=== PATIENT | female | born 1975 | race Caucasian/White ===

== ENCOUNTER → 2020-01-26 15:17 | Outpatient (CLI) | payer BC, SELFPAY ==
--- NOTE | ~2020-01-26 | MM_ITS ---
EXAMINATION: MM screening [facility] BI w leda HISTORY: Screening mammogram TECHNIQUE: Craniocaudal and mediolateral oblique 3-D tomosynthesis images were obtained and synthetic 2-D images were generated. CAD analysis was submitted and interpreted. COMPARISON: No prior mammogram is available for comparison at this institution. BREAST PARENCHYMAL COMPOSITION: There are scattered areas of fibroglandular density. FINDINGS: Possible 3 mm spiculated mass at lower outer quadrant of right breast (craniocaudal leda im age 14/93). Otherwise there is no evidence of suspicious mass, calcification, or architectural distortion to sugg est malignancy in either breast. There has been no suspicious interval change. IMPRESSION: 1. Possible 3 mm spiculated mass at lower outer quadrant of right breast. 2. Diagnostic right mammogram is recommended, with ultrasound if required BI-RADS Category 0: Incomplete: Needs additional imaging evaluation. Reviewed, dictated and finalized at location A.
== END ==
PROVIDERS: Visit Provider Obstetrics & Gynecology
DX: Z12.31 Encounter for screening mammogram for malignant neoplasm of breast (principal)
CPT/HCPCS: 77063; 77067

== ENCOUNTER → 2020-02-01 08:30 | Outpatient (CLI) | payer BC, SELFPAY ==
--- NOTE | ~2020-02-01 | MMUS_ITS ---
EXAMINATION: MM diagnostic mammo unilat RT, US breast RT limited HISTORY: Follow-up right breast asymmetry TECHNIQUE: Additional 3-D tomosynthesis images of the right breast were performed and synthetic 2-D i mages were generated. CAD analysis was submitted and interpreted. High resolution right breast ultras ound was performed. COMPARISON: 01/26/2020 BREAST PARENCHYMAL COMPOSITION: Breast composed of scattered areas of fibroglandular density FINDINGS: MAMMOGRAPHIC FINDINGS: There are no suspicious masses, calcifications or architectural distortion to suggest malignancy. ULTRASOUND: Limited right breast ultrasound: Normal heterogeneous echotexture without focal mass. IMPRESSION: 1. No mammographic or sonographic evidence for malignancy in the right breast. 2. Routine yearly screening mammogram and regular clinical breast examination are recommended. BI-RADS Category 1: Negative Reviewed, dictated and finalized at location A. IMPRESSION: 1. No mammographic or sonographic evidence for malignancy in the right breast. 2. Routine yearly screening mammogram and regular clinical breast examination a re recommended. BI-RADS Category 1: Negative
== END ==
PROVIDERS: Visit Provider Obstetrics & Gynecology
DX: R92.8 Other abnormal and inconclusive findings on diagnostic imaging of breast (principal)
CPT/HCPCS: 76642; 77065

== ENCOUNTER 2020-02-13 17:15 | Emergency (ER) | payer BC, SELFPAY ==
--- NOTE | 2020-02-13 17:26 | ED.GENADULT ---
HPI - General Adult General Chief complaint: Ear Stated complaint: fluid in ear Time Seen by Provider: 02/13/20 17:26 Source: patient Mode of arrival: ambulatory Limitations: no limitations History of Present Illness HPI narrative: 44-year-old female patient presents to the [facility] with complaints of right ear pain that started about 2 days ago. Patient states she has had a little bit of a runny and stuffy nose recently. Patient states she does take Ro daily because she does have a lot of allergy issues and does get sinus infections frequently. Patient states she noticed some fluid coming from the right ear today as well when to come and get it checked out. Patient denies any fevers, body aches or chills. Denies any chest pain, shortness of breath. Related Data Home Medications Medication Instructions Recorded Confirmed atomoxetine PO 02/13/20 desvenlafaxine succinate mg PO 02/13/20 levonorgestrel-ethinyl estrad tablet 02/13/20 [Lessina] lorazepam 02/13/20 propranolol 02/13/20 trazodone 02/13/20 Allergies Allergy/AdvReac Type Severity Reaction Status Date / Time No Known Allergies Allergy Unverified 06/24/12 13:19 Review of Systems Review of Systems: Narrative: CONSTITUTIONAL: Denies fever, chills, or sweats. EYES: Denies visual changes, redness, or discharge. ENT: Denies rhinorrhea, congestion, sore throat, positive right otalgia. CARDIOVASCULAR: Denies chest pain, palpitations, or edema. RESPIRATORY: Denies cough or dyspnea. GASTROINTESTINAL: Denies abdominal pain, nausea, vomiting, or diarrhea. GENITOURINARY: Denies dysuria or hematuria. SKIN: Denies rash or itching. MUSCULOSKELETAL: Denies back pain, joint pain, or myalgia. NEUROLOGIC: Denies headache, numbness, or weakness. PSYCHIATRIC: Denies anxiety or depression. PMFSH Comments At the time of my signature I agree with nursing past medical history, surgical, social, and family history. There is no relevant family history pertinent to the presenting complaint. Exam Narrative: Exam Narrative: GENERAL: Well-appearing, well-nourished, and in no acute distress. HEAD: Normocephalic, atraumatic. EYES: PERRLA and EOMI. ENT: Nares clear, no rhinorrhea or epistaxis. Mucous membranes moist. The right TM does have fluid behind it with slight bulging. There is some green drainage noted to the right ear canal with some erythema and swelling noted. Posterior pharynx with no erythema, tonsil larger, exudates or lesions present. NECK: Supple. No lymphadenopathy CHEST: Clear to auscultation. No respiratory distress. HEART: Regular rate and rhythm. No murmur heard. Normal peripheral pulses. ABDOMEN: Soft, nontender, nondistended, normal active bowel sounds. EXTREMITIES: Normal range of motion. No edema. SKIN: Warm, dry, no rash. NEURO: No focal deficits. Alert and oriented x3. Course Vital Signs Vital signs: Vital Signs Temperature 37.1 C 02/13/20 17:30 Pulse Rate 88 02/13/20 17:30 Respiratory Rate 16 02/13/20 17:30 Blood Pressure 136/89 02/13/20 17:30 Pulse Oximetry 100 02/13/20 17:30 Temperature 37.1 C 02/13/20 17:30 Pulse Rate 88 02/13/20 17:30 Respiratory Rate 16 02/13/20 17:30 Blood Pressure 136/89 02/13/20 17:30 Pulse Oximetry 100 02/13/20 17:30 Vital signs reviewed. Medical Decision Making Differential Diagnosis Differential Diagnosis: Differential diagnosis: Otitis media, otitis externa, perforated TM, infection of the outer ear, foreign body or cerumen impaction, ruptured TM, acute mastoiditis, ligament otitis externa, dehydration, pneumonia, sepsis, dental or intraoral infection, TMJ dysfunction Discussed with patient that it does look like she has an inner ear infection as well as an outer ear infection. Discussed with patient that we will go ahead and discharge her home with oral antibiotics as well as some topical eardrops for her infection. Discussed with patient can she can take Tyleno
[2020-02-13 17:30] VITALS: BP 136/89; PULSE 88; RESP 16; TEMP 37.1; O2SAT 100
== END 2020-02-13 17:55 | disposition home or self-care (01) ==
PROVIDERS: Emergency Provider Nurse Practitioner Family
DX: H66.91 Otitis media, unspecified, right ear (principal); H60.501 Unspecified acute noninfective otitis externa, right ear; F41.9 Anxiety disorder, unspecified; F32.9 Major depressive disorder, single episode, unspecified
CPT/HCPCS: 99213; G0463

== ENCOUNTER 2020-04-15 16:58 | Emergency (ER) | payer BC, SELFPAY ==
[2020-04-15 17:06] VITALS: BP 152/98; PULSE 97; RESP 20; TEMP 36.6; O2SAT 100
--- NOTE | 2020-04-15 17:12 | ED.EAR ---
HPI - Ear Problem General Stated complaint: ear pain Time Seen by Provider: 04/15/20 17:12 Source: patient and RN notes reviewed History of Present Illness HPI Narrative: Patient is a 44-year-old female who presents the urgent care with complaints of right ear pain. Patient states is been ongoing since Wednesday and 2 nights ago she took Benadryl for the pain. Patient states she has not taken anything else [id number] for her symptoms. States that 2 months ago she had a right ear infection and was on eardrops and oral medication at that time. Denies of any fever, nausea, vomiting, any other upper respiratory symptoms. No other acute complaints. No acute distress noted. Patient aware of the plan of care. Some parts of this dictation were generated by voice recognition software and may contain typographical and/or grammatical inaccuracies. Related Data Home Medications Medication Instructions Recorded Confirmed atomoxetine PO 02/13/20 desvenlafaxine succinate mg PO 02/13/20 levonorgestrel-ethinyl estrad tablet 02/13/20 [Lessina] lorazepam 02/13/20 propranolol 02/13/20 trazodone 02/13/20 Allergies Allergy/AdvReac Type Severity Reaction Status Date / Time No Known Allergies Allergy Unverified 04/15/20 17:21 Review of Systems Review of Systems: Narrative: CONSTITUTIONAL: Denies fever, chills, or sweats. EYES: Denies visual changes, redness, or discharge. ENT: Reports of right otalgia CARDIOVASCULAR: Denies chest pain, palpitations, or edema. RESPIRATORY: Denies cough or dyspnea. GASTROINTESTINAL: Denies abdominal pain, nausea, vomiting, or diarrhea. GENITOURINARY: Denies dysuria or hematuria. SKIN: Denies rash or itching. MUSCULOSKELETAL: Denies back pain, joint pain, or myalgia. NEUROLOGIC: Denies headache, numbness, or weakness. All other systems reviewed are negative, except as documented in HPI. PMFSH Comments At the time of my signature, I reviewed and agree with the nursing past medical, surgical, social, and family history. There is no relevant family history pertinent to the patient complaint. Exam Narrative: Exam Narrative: GENERAL: This is a well-nourished, well-developed patient, in no apparent distress. HEAD: normocephalic, atraumatic. EYES: PERRL. Sclera clear/white. Vision is grossly intact. EARS: External ears normal, auditory canals clear and without drainage, mild fluid noted behind bilateral TMs without otitis, TMs normal without perforation. Hearing grossly intact. NOSE: External nose normal with no obvious nasal discharge, nares without redness, no rhinorrhea. THROAT: Mucous membranes moist, posterior pharynx clear. Mild postnasal drainage NECK: Neck supple SKIN: warm, intact with no suspicious lesions or rash, good texture and turgor. NEURO: awake, alert, and oriented to person, place and time. There were no obvious focal neurologic abnormalities. EXTREMITIES: No clubbing, cyanosis, or edema. Course Vital Signs Vital signs: Vital Signs Temperature 97.8 F 04/15/20 17:06 Pulse Rate 97 04/15/20 17:06 Respiratory Rate 20 04/15/20 17:06 Blood Pressure 152/98 H 04/15/20 17:06 Pulse Oximetry 100 04/15/20 17:06 Temperature 97.8 F 04/15/20 17:06 Pulse Rate 97 04/15/20 17:06 Respiratory Rate 20 04/15/20 17:06 Blood Pressure 152/98 H 04/15/20 17:06 Pulse Oximetry 100 04/15/20 17:06 Reviewed-patient is informed that they may have pre-hypertension or hypertension based on a blood pressure reading in the department. I recommend the patient call the primary care provider listed on their discharge instructions or a physician of their choice this week to arrange follow-up for further evaluation of possible pre-hypertension or hypertension. Medical Decision Making MDM Narrative Medical decision making narrative: Advised the patient to continue using her daily Ro as well as a dose of Benadryl prior to bedtime. Use Flonase nasal spray nightly. Use a hum
== END 2020-04-15 17:29 | disposition home or self-care (01) ==
PROVIDERS: Emergency Provider Nurse Practitioner Family
DX: H92.01 Otalgia, right ear (principal); F90.9 Attention-deficit hyperactivity disorder, unspecified type; F41.9 Anxiety disorder, unspecified; F32.9 Major depressive disorder, single episode, unspecified
CPT/HCPCS: 99213; G0463

== ENCOUNTER → 2021-06-13 15:42 | Outpatient (CLI) | payer BC, SELFPAY ==
--- NOTE | ~2021-06-13 | MM_ITS ---
EXAMINATION: MM screening [facility] BI w leda HISTORY: Screening TECHNIQUE: Craniocaudal and mediolateral oblique 3-D tomosynthesis images were obtained and synthetic 2-D images were generated. CAD analysis was submitted and interpreted. COMPARISON: Comparison to multiple prior studies sequentially, with oldest reviewed study dated 09/13. BREAST PARENCHYMAL COMPOSITION: The breasts are almost entirely fatty. FINDINGS: There is no evidence of suspicious mass, calcification, or architectural distortion to sugg est malignancy in either breast. There has been no suspicious interval change. IMPRESSION: 1. No mammographic evidence of malignancy. 2. Recommend routine screening mammography in one year. BI-RADS Category 1: Negative Reviewed, dictated and finalized at location A. AL CTO
== END ==
PROVIDERS: PCP Internal Medicine; Visit Provider Obstetrics & Gynecology
DX: Z12.31 Encounter for screening mammogram for malignant neoplasm of breast (principal)
CPT/HCPCS: 77063; 77067

== ENCOUNTER → 2022-02-12 08:02 | Outpatient (CLI) | payer BC, SELFPAY ==
--- NOTE | ~2022-02-12 | XR_ITS ---
EXAMINATION: XR chest 2V 02/12/2022 08:15 INDICATION: Cough PROCEDURE: 2 view chest COMPARISON: No prior studies for comparison. FINDINGS: The lungs are clear. The cardiomediastinal silhouette is within normal limits. There are no pleural effusions. There is no pneumothorax suspected. IMPRESSION: 1: NO ACUTE CARDIOPULMONARY DISEASE. Reviewed, dictated and finalized at location B.
== END ==
PROVIDERS: PCP Nurse Practitioner; Visit Provider Nurse Practitioner
DX: R05.9 Cough, unspecified (principal)
CPT/HCPCS: 71046

== ENCOUNTER → 2023-01-21 15:04 | Outpatient (CLI) | payer BC, SELFPAY ==
--- NOTE | ~2023-01-21 | MM_ITS ---
EXAMINATION: MM screening [facility] BI w leda HISTORY: Screening mammogram TECHNIQUE: Craniocaudal and mediolateral oblique 3-D tomosynthesis images were obtained and synthetic 2-D images were generated. CAD analysis was submitted and interpreted. COMPARISON: 06/13/2021, 02/01/2020, 01/25/2020 BREAST PARENCHYMAL COMPOSITION: The breasts are almost entirely fatty. FINDINGS: RIGHT BREAST: An asymmetry is present in the anterior/middle third of the upper breast 5.2 cm from th e nipple on the mediolateral oblique view. LEFT BREAST: No suspicious mass, calcification, or architectural distortion are identified to suggest malignancy. There has been no suspicious interval change. IMPRESSION: 1. Right breast asymmetry. 2. Additional mammographic views and possible breast ultrasound are recommended. BI-RADS Category 0: Incomplete: Needs additional imaging evaluation. Reviewed, dictated and finalized at location A. IMPRESSION: 1. Right breast asymmetry. 2. Additional mammographic views and possible breast ultrasound are recommended . BI-RADS Category 0: Incomplete: Needs additional imaging evaluation.
== END ==
PROVIDERS: PCP Internal Medicine; Visit Provider Obstetrics & Gynecology
DX: Z12.31 Encounter for screening mammogram for malignant neoplasm of breast (principal); R92.8 Other abnormal and inconclusive findings on diagnostic imaging of breast
CPT/HCPCS: 77063; 77067

== ENCOUNTER 2023-02-15 08:45 | Outpatient (CLI) | payer BC, SELFPAY ==
--- NOTE | ~2023-02-15 | MM_ITS ---
EXAMINATION: MM diagnostic ty RT w leda HISTORY: Right breast asymmetry reported in the anterior/middle third of upper breast 5.2 cm from nip ple on screening MLO view of 01/21/2023 TECHNIQUE: Additional 3-D tomosynthesis images of the right breast were performed and synthetic 2-D i mages were generated. CAD analysis was submitted and interpreted. COMPARISON: 01/21/2023, 06/13/2023ilateral screening mammogram examinations FINDINGS: No suspicious mass, architectural distortion, malignant calcification, skin thickening or r etraction is detected. IMPRESSION: 1. No mammographic evidence of malignancy 2. Routine mammographic screening is recommended BI-RADS Category 1: Negative Reviewed, dictated and finalized at location A.
== END 2023-02-15 08:46 ==
PROVIDERS: PCP Obstetrics & Gynecology; Visit Provider Obstetrics & Gynecology
DX: R92.8 Other abnormal and inconclusive findings on diagnostic imaging of breast (principal)
CPT/HCPCS: 77061; 77065; G0279

== ENCOUNTER 2023-02-22 12:23 | Observation (INO) | payer BC, SELFPAY ==
[2023-02-22] VITALS (22 sets, daily range): BP systolic 138–158; BP diastolic 92–112; PULSE 94–120; RESP 12–29; TEMP 36.1–36.4; O2SAT 96–100; BMI 29.6
--- NOTE | ~2023-02-22 | XR_ITS ---
XR chest 2V DATE: 02/22/2023 13:18 INDICATION: Chest pain TECHNIQUE: PA and lateral views COMPARISON: 02/12/2022 2 view chest FINDINGS: Normal heart size. No hilar or mediastinal enlargement. No pulmonary infiltrate or consolid ation, pleural effusion or pulmonary vascular congestion or pneumothorax. Included skeletal structure s are unremarkable. IMPRESSION: Negative Reviewed, dictated and finalized at location B. IMPRESSION: Negative
--- NOTE | 2023-02-22 12:28 | ECG_ITS ---
Measurements Intervals [place] Rate: 105 P: 46 LA: 136 QRS: -5 QRSD: 88 T: 80 QT: 344 QTc: 455 Interpretive Statements SINUS TACHYCARDIA POOR R-WAVE PROGRESSION NONSPECIFIC T-WAVE ABNORMALITY ABNORMAL ECG NO PREVIOUS ECG AVAILABLE FOR COMPARISON Electronically Signed On 02-23-2023 11:49:21 CDT by Robbie Agrawal M.D.
[2023-02-22 12:55] LABS: Basophils Absolute Auto 0.1 K/mm3 (0.0-0.1); Basophils Percent Auto 0.9 % (0.2-1.2); Eosinophils Absolute Auto 0.1 K/mm3 (0-0.3); Eosinophils Percent Auto 1.3 % (0-4.4); Hematocrit 47.3 % (37.0-47.0); Hemoglobin 16.2 g/dL (12.0-15.0); Immature Granulocyte Absolute 0.03 K/mm3 (0.00-0.031); Immature Granulocyte Percent A 0.4 % (0-0.5); Lymphocytes Absolute Auto 1.84 K/mm3 (0.9-3.2); Lymphocytes Percent Auto 23.4 % (18.3-44.2); Mean Corpuscular HGB Conc 34.2 g/dl (32-36); Mean Corpuscular Hemoglobin 31.6 pg (26-34); Mean Corpuscular Volume 92.4 fl (80-100); Mean Platelet Volume 9.9 fl (7.4-10.4); Monocytes Absolute Auto 0.5 K/mm3 (0.1-0.6); Monocytes Percent Auto 6.7 % (2.6-8.5); Neutrophils Absolute Auto 5.3 K/mm3 (1.3-6.7); Neutrophils Percent Auto 67.3 % (45.5-73.1); Platelet Count Result 370 k/mm3 (150-375); Red Blood Count 5.12 M/mm3 (4.2-5.4); Red Cell Distribution Width 12.6 % (11.5-14.5); White Blood Count 7.9 K/mm3 (4.5-10.0)
[2023-02-22 13:01] LABS: Alanine Aminotransferase 53 U/L (6-35); Albumin Level 4.5 g/dL (3.5-5.1); Alkaline Phosphatase 112 U/L (38-126); Anion Gap 7 mmol/L (8-16); Aspartate Amino Transferase 49 U/L (14-36); Bilirubin,Total 0.8 mg/dL (0.2-1.3); Blood Urea Nitrogen 10 mg/dL (7-17); Calcium 8.8 mg/dL (8.4-10.2); Carbon Dioxide 30 mmol/L (22-30); Chloride 95 mmol/L (98-107); Estimated CRCL calculation 78 ml/min; Estimated Glomerular Filt Rate > 60; Glucose 118 mg/dL (65-110); Lipase 39 U/L (23-300); Potassium 3.6 mmol/L (3.4-5.0); Prothrombin Time 13.4 Seconds (11.1-14.7); Sodium 132 mmol/L (137-145)
[2023-02-22 13:02] LABS: Partial Thromboplastin Time 24.4 SECONDS (22.3-36.8)
[2023-02-22 13:15] LABS: Troponin I 0.057 ng/mL (0.000-0.034)
--- NOTE | 2023-02-22 14:03 | ED.CHESTPAIN ---
HPI - Chest Pain General Chief Complaint: Chest Pain Stated Complaint: abnormal ekg in pmd Time Seen by Provider: 02/22/23 13:31 History of Present Illness HPI narrative: Patient is a 47-year-old female with a history of depression, anxiety, GERD presenting with chest discomfort. Patient states that yesterday she was just feeling off. States that she has had nasal congestion and a sinus headache so she attributed it to sinusitis. States that she checked her blood pressure and it was elevated and it remained elevated the entire day. This morning she woke up and continued to feel somewhat unwell and then had an episode of chest discomfort and shortness of breath. She saw her PCP who obtained an EKG and told her it was abnormal and to come to the ER. Currently, she denies chest pain or shortness of breath. States that she has had a decreased appetite lately but no vomiting or diarrhea. No leg swelling. No fevers or chills. Denies further complaints. No history of diabetes or tobacco use. Related Data Home Medications Medication Instructions Recorded Confirmed omeprazole 20 mg PO BID 04/15/20 02/26/23 atomoxetine 100 mg capsule 100 mg PO DAILY 02/04/21 02/26/23 biotin 10,000 mcg-keratin 100 mg tablet PO 02/04/21 02/26/23 tablet (Biotin Plus Keratin) desvenlafaxine succinate 100 mg 100 mg PO DAILY 02/04/21 02/26/23 tablet,extended release 24 hr lorazepam 0.5 mg tablet (Ativan) 0.5 mg PO BID PRN 02/04/21 02/26/23 magnesium 200 mg tablet 400 mg PO DAILY 02/04/21 02/26/23 multivitamin 1 tablet PO DAILY 02/04/21 02/26/23 phytoestrogen PO 02/04/21 02/26/23 fexofenadine 60 mg tablet (Ro 60 mg PO DAILY 02/11/22 02/26/23 Allergy) azelastine 137 mcg (0.1 %) nasal 137 mcg intranasal Q12H PRN 02/22/23 02/26/23 spray aerosol cetirizine 10 mg tablet (Zyrtec) 10 mg PO DAILY 02/22/23 02/26/23 estradiol 0.1 mg/24 hr semiweekly 1 patch transdermal 2XW 02/22/23 02/26/23 transdermal patch (Lyllana) progesterone micronized 100 mg 100 mg PO DAILY 02/22/23 02/26/23 capsule trazodone 100 mg tablet 150 mg PO HS PRN 02/22/23 02/26/23 coenzyme Q10 100 mg capsule 100 mg PO DAILY 02/26/23 02/26/23 (CoQ-10) Allergies Allergy/AdvReac Type Severity Reaction Status Date / Time erythromycin base Allergy Unknown Verified 02/24/23 12:25 mold Allergy Cough Verified 02/24/23 12:25 Review of Systems Review of Systems: All systems reviewed & are unremarkable except as noted in HPI and below PMFSH Past Medical History Medical History ADHD Allergies Anxiety Anxiety Depression with anxiety GERD (gastroesophageal reflux disease) Family History Family History Father Heart disease Mother Diabetes mellitus Depression Thyroid disease Congestive heart failure Sibling Asthma Depression Father Heart attack Mother COPD (chronic obstructive pulmonary disease) Congestive heart failure Foot ulcer due to secondary DM Diabetes mellitus Social History Social History Smoking status: Never smoker Alcohol intake: current Drinks per week: 4 Substance use: never Lack of Transportation: No Lack of Food: Never True Current Housing: I Have Housing Concerned About Future Housing: No Difficulty Paying Gas/Electric Bills: No Difficulty Paying for Meds: No Currently Unemployed: No Education: Master's Degree or Higher Difficulty w/ Childcare or Family Care: No Spiritual care concerns: No Exam Narrative: GENERAL: Well-appearing, well-nourished, and in no acute distress. Pleasant and cooperative HEAD: Normocephalic, atraumatic. EYES: PERRLA and EOMI. ENT: Nares clear, no rhinorrhea or epistaxis. NECK: Supple. CHEST: Clear to auscultation. No respiratory distress. HEART: Regular rate and rhythm. No murmur
[2023-02-22] MEDS: ASPIRIN 81 MG CHEWABLE TABLET 324 MG PO (14:07)
[2023-02-22] MEDS: SODIUM CHLORIDE 0.9% IV 1,000 ML 999 ML IV CONT (14:12)
[2023-02-22 14:56] LABS: Influenza A QL RT-PCR Negative (Negative); Influenza B QL RT-PCR Negative (Negative); RSV RNA, RT-PCR Negative (Negative); SARS-CoV-2 RNA PCR Negative (Negative)
[2023-02-22 16:09] LABS: Troponin I 0.056 ng/mL (0.000-0.034)
--- NOTE | 2023-02-22 16:22 | PM.IMHP ---
H&P: HPI History of Present Illness Date/Time: 02/22/23 21:30 Chief Complaint: chest pressure Narrative: This is a 47-year-old female patient with a history of ADHD and anxiety who is admitted to the hospital after she was found to have elevated troponins upon ER workup for chest pressure radiating into her back for 2 days. Patient reports that she had a few days of viral symptoms including headache runny/stuffy nose and then she began to feel shortness of breath with chest pressure radiating into her back. Patient also reports that her blood pressures have been high over the last few days and she has admitted to obsessively checking and getting higher and higher results. She does not currently take blood pressure medicine but believes she needs to be on some. Patient reported little bit of nausea no vomiting and she reported decreased appetite. She denies chance of and no longer takes control because she is told she is going into menopause. She does receive supplemental estradiol topically twice weekly. will order D-dimer and if positive will order CTA of the chest. Echocardiogram is ordered. Review of Systems Review of Systems: All systems reviewed & are unremarkable except as noted in HPI and below PMFSH Past Medical History Medical History ADHD Anxiety Family History Family History Father Heart attack Mother COPD (chronic obstructive pulmonary disease) CHF (congestive heart failure) Foot ulcer due to secondary DM Diabetes mellitus Social History Social History Smoking status: Never smoker Alcohol intake: current Drinks per week: 4 Substance use: never Lack of Transportation: No Lack of Food: Never True Current Housing: I Have Housing Concerned About Future Housing: No Difficulty Paying Gas/Electric Bills: No Difficulty Paying for Meds: No Currently Unemployed: No Education: Master's Degree or Higher Difficulty w/ Childcare or Family Care: No Spiritual care concerns: No Meds Home Medications and Allergies Home Medications Medication Instructions Recorded Confirmed Type atomoxetine 100 mg capsule 100 mg PO DAILY 02/22/23 02/22/23 History cetirizine 10 mg tablet (Zyrtec) 10 mg PO DAILY 02/22/23 02/22/23 History desvenlafaxine succinate 100 mg 100 mg PO DAILY 02/22/23 02/22/23 History tablet,extended release 24 hr estradiol 0.1 mg/24 hr semiweekly 0.1 mg topical 2XW 02/22/23 02/22/23 History transdermal patch (Lyllana) lorazepam 0.5 mg tablet 0.5 mg PO DAILY 02/22/23 02/22/23 History omeprazole 40 mg capsule,delayed 40 mg PO DAILY 02/22/23 02/22/23 History release progesterone micronized 100 mg 100 mg PO DAILY 02/22/23 02/22/23 History capsule propranolol 20 mg tablet 20 mg PO DAILY PRN Anxiety 02/22/23 02/22/23 History trazodone 100 mg tablet 100 mg PO HS 02/22/23 02/22/23 History Allergies Allergy/AdvReac Type Severity Reaction Status Date / Time erythromycin base Allergy Unknown Verified 02/22/23 18:11 mold Allergy Cough Verified 02/22/23 18:11 Vital Signs Vital Signs - 24 hr 02/22/23 12:32 02/22/23 12:47 02/22/23 13:01 Temperature 36.4 C Pulse Rate 105 H 96 104 H Respiratory Rate 29 H 13 12 Blood Pressure 148/102 H 152/112 H Pulse Oximetry 100 100 100 Oxygen Delivery Room Air 02/22/23 13:22 02/22/23 13:24 02/22/23 13:30 Temperature Pulse Rate 100 100 96 Respiratory Rate 14 19 19 Blood Pressure 141/111 H Pulse Oximetry 100 100 100 Oxygen Delivery 02/22/23 14:00 02/22/23 14:01 02/22/23 14:30 Temperature Pulse Rate 97 94 96 Respiratory Rate 24 H 16 19 Blood Pressure 156/108 H 158/102 H Pulse Oximetry 100 100 100 Oxygen Delivery 02/22/23 14:45 02/22/23 15:00 Temperature Pulse Rate 95 97 Respiratory Rate 17 2
--- NOTE | 2023-02-22 17:55 | ADMGEN ---
This patient, Pamella Garay, was admitted to 2 Medical Room 240-01. Patient/family oriented to hospital policies and general routines including ID bracelet, bed and alarms, visiting hours, pain management, procedures, bathroom and other care routines, personal items, smoking policy, room service/diet, and visiting hours. Information on how to activate the Rapid Response Team has been discussed. Patient/Family are encouraged to report perceived risks to care and to ask questions if they do not understand what they are told or what they should do.
[2023-02-22] MEDS: ENOXAPARIN 40 MG/0.4 ML SYRINGE SUB-Q (22:44)
[2023-02-22] MEDS: traZODone HCL 50 MG TABLET 100 MG PO (22:44)
[2023-02-22] MEDS: LORazepam (*CRX) 1 MG TABLET PO (22:50)
[2023-02-23] VITALS (7 sets, daily range): BP systolic 121–157; BP diastolic 81–96; PULSE 103–119; RESP 18–20; TEMP 36.3–36.4; O2SAT 99–100
--- NOTE | 2023-02-23 | EST_ITS ---
Patient Info Name: Pamella Garay Age: 47 years : 1975 Gender: Female Ht: 65 in Wt: 180 lbs BSA: 1.96 m2 HR: 118 bpm BP: 138 / 106 mmHg Heart Rhythm: Sinus Rhythm Exam Date: 02/23/2023 11:41 AM Exam Location: [facility] Patient Status: Inpatient Admit Date: 02/22/2023 Staff Ordering Physician: Robbie Agrawal MD Recycling Coordinator: Yakelin Meng RDCS Attending Provider: BREANNA DASILVA NP Referring Physician: Nghia CRANDALL; Exercise Technologist: Yakelin Meng RDCS Exercise Physician: breanna dasilva Exam Type: CA stress echo Study Info Indications R07.89 - Other chest pain Treadmill exercise stress echocardiogram is performed. Summary 1. Sinus tachycardia with leftward axis and poor R-wave progression. 2. No ischemic ST segment abnormalities noted with exercise. 3. PVCs noted with peak exercise. 4. Normal hyperdynamic response following treadmill exercise. 5. No ischemic wall motion abnormalities noted. 6. Clinically and electrocardiographically negative stress test to 97% age predicted maximum heart rate. Stress Echo Findings Left Ventricle Normal hyperdynamic response following treadmill exercise. Left Ventricle Normal left ventricular size and systolic function. Protocol: Jorge Stress ECG Details Stage: REST Duration (min): 1 min : 0 sec Speed (mph): 0.0 Grade (%): 0 HR (bpm): 120 SBP (mmHg): 138 DBP (mmHg): 106 METS: --- Stage: REST Duration (min): 10 min : 6 sec Speed (mph): 0.0 Grade (%): 0 HR (bpm): 129 SBP (mmHg): 138 DBP (mmHg): 106 METS: --- Stage: STAGE 1 Duration (min): 1 min : 0 sec Speed (mph): 1.7 Grade (%): 10 HR (bpm): 149 SBP (mmHg): 138 DBP (mmHg): 106 METS: --- Stage: STAGE 1 Duration (min): 2 min : 0 sec Speed (mph): 1.7 Grade (%): 10 HR (bpm): 155 SBP (mmHg): 138 DBP (mmHg): 106 METS: --- Stage: STAGE 1 Duration (min): 3 min : 0 sec Speed (mph): 1.7 Grade (%): 10 HR (bpm): 155 SBP (mmHg): 174 DBP (mmHg): 95 METS: --- Stage: STAGE 2 Duration (min): 1 min : 0 sec Speed (mph): 2.5 Grade (%): 12 HR (bpm): 165 SBP (mmHg): 174 DBP (mmHg): 95 METS: --- Stage: STAGE 2 Duration (min): 1 min : 13 sec Speed (mph): 0.0 Grade (%): 0 HR (bpm): 165 SBP (mmHg): 174 DBP (mmHg): 95 METS: --- Stage: RECOVERY Duration (min): 0 min : 46 sec Speed (mph): 0.0 Grade (%): 0 HR (bpm): 157 SBP (mmHg): 165 DBP (mmHg): 90 METS: --- Stage: RECOVERY Duration (min): 1 min : 47 sec Speed (mph): 0.0 Grade (%): 0 HR (bpm): 142 SBP (mmHg): 165 DBP (mmHg): 90 METS: --- Stage: RECOVERY Duration (min): 2 min : 46 sec Speed (mph): 0.0 Grade (%): 0 HR (bpm): 131 SBP (mmHg): 170 DBP (mmHg): 95 METS: --- Stage: RECOVERY Duration (min): 3 min : 47 sec Speed (mph): 0.0 Grade (%): 0 HR (bpm): 124 SBP (mmHg): 170 DBP (mmHg): 95 METS: --- Stage: RECOVERY Dur
[2023-02-23 00:05] LABS: D Dimer 0.34 ug/mL (<0.48)
--- NOTE | 2023-02-23 06:46 | PM.IMPN ---
Progress Note: A&P Assessment and Plan (1) Elevated troponin: Code(s): R77.8 - Other specified abnormalities of plasma proteins Status: Acute Assessment and Plan: elevated but downtrending troponin noted. Cardiology nurse practitioner was consulted and recommended echocardiogram in the morning. Given elevated troponin and history of hormone replacement, will check D-dimer and order CTA to assess for pulmonary embolism if D-dimer is positive. -D-dimer normal -Troponin initially elevated 0.057->0.056->0.050->0.032 -cards consult and recommendations are appreciated -Stress ECHO ordered (2) Viral syndrome: Code(s): B34.9 - Viral infection, unspecified Status: Acute Assessment and Plan: patient negative for COVID flu RSV however, troponin elevation could be mild myocarditis from other viral pathogen -viral vs bacterial sinusitis (3) Abnormal EKG: Code(s): R94.31 - Abnormal electrocardiogram [ECG] [EKG] Status: Acute Assessment and Plan: T-wave inversion in aVL and Q-wave greater than 40 milliseconds in V1/V2, cardiology CARE PROGRAM RESIDENT was consulted recommended trending tropes and echocardiogram in the morning (4) Anxiety: Code(s): F41.9 - Anxiety disorder, unspecified Status: Acute Assessment and Plan: Patient exhibiting significant signs anxiety which may be contributing to her elevated blood pressure. She reports checking her blood pressure repeatedly at home. She is on several medications for anxiety at baseline and appears to be excessively anxious that she may have had heart attack. -stable. home medications are on hold at this point just because we do not have them on formulary. If she stays tonight I will see if she can have someone bring them in from home. (5) ADHD: Code(s): F90.9 - Attention-deficit hyperactivity disorder, unspecified type Status: Acute Assessment and Plan: Patient is on stimulants which may be contributing to elevated blood pressure. (6) Elevated blood pressure reading: Code(s): R03.0 - Elevated blood-pressure reading, without diagnosis of hypertension Status: Acute Assessment and Plan: Blood pressure 152/94 on admission. Now 120s/80. Slightly tachycardic but I'm inclined to think this is anxiety related. Plan Admit to med tele Stress Echocardiogram in the a.m. Diet: Heart healthy VTE prophylaxis: Lovenox med rec: Completed Subjective Date/time seen: 02/23/23 06:46 Interval history: HPI obtained from chart, Chief Complaint: chest pressure Narrative: This is a 47-year-old female patient with a history of ADHD and anxiety who? is admitted to the hospital after she was found to have elevated troponins upon ER workup for chest pressure radiating into her back for 2 days.? Patient reports that she had a few days of viral symptoms including headache runny/stuffy nose and then she began to feel shortness of breath with chest pressure radiating into her back.? Patient also reports that her blood pressures have been high over the last few days and she has admitted to obsessively checking and getting higher and higher results.? She does not currently take blood pressure medicine but believes she needs to be on some.? Patient reported little bit of nausea no vomiting and she reported decreased appetite.? She denies chance of and no longer takes control because she is told she is going into menopause.? She does receive supplemental estradiol topically twice weekly.? will order D-dimer and if positive will order CTA of the chest.? Echocardiogram is ordered. Interval history: 02/23: Patient is doing well this morning she denies shortness of breath but has continued chest pressure which she says is in her epigastric area and back. She also complains of nasal congestion, unilateral tenderness to right maxillary and frontal sinus pressure and associated headache. She is keith
--- NOTE | 2023-02-23 06:53 | PC.NURSE ---
Documentation for night 02/22 by Eleazar Mi reviewed by this nurse.
[2023-02-23 07:11] LABS: Basophils Absolute Auto 0.1 K/mm3 (0.0-0.1); Basophils Percent Auto 0.7 % (0.2-1.2); Eosinophils Absolute Auto 0.2 K/mm3 (0-0.3); Eosinophils Percent Auto 2.3 % (0-4.4); Hematocrit 41.8 % (37.0-47.0); Hemoglobin 14.2 g/dL (12.0-15.0); Immature Granulocyte Absolute 0.03 K/mm3 (0.00-0.031); Immature Granulocyte Percent A 0.4 % (0-0.5); Lymphocytes Absolute Auto 2.83 K/mm3 (0.9-3.2); Lymphocytes Percent Auto 41.1 % (18.3-44.2); Mean Corpuscular Hemoglobin 31.2 pg (26-34); Mean Corpuscular Volume 91.9 fl (80-100); Mean Platelet Volume 9.7 fl (7.4-10.4); Monocytes Absolute Auto 0.7 K/mm3 (0.1-0.6); Monocytes Percent Auto 9.9 % (2.6-8.5); Neutrophils Absolute Auto 3.1 K/mm3 (1.3-6.7); Neutrophils Percent Auto 45.6 % (45.5-73.1); Platelet Count Result 292 k/mm3 (150-375); Red Blood Count 4.55 M/mm3 (4.2-5.4); Red Cell Distribution Width 12.6 % (11.5-14.5); White Blood Count 6.9 K/mm3 (4.5-10.0)
[2023-02-23 07:22] LABS: Alanine Aminotransferase 43 U/L (6-35); Albumin Level 3.6 g/dL (3.5-5.1); Alkaline Phosphatase 83 U/L (38-126); Anion Gap 7 mmol/L (8-16); Aspartate Amino Transferase 41 U/L (14-36); Bilirubin,Total 0.4 mg/dL (0.2-1.3); Blood Urea Nitrogen 14 mg/dL (7-17); Calcium 8.5 mg/dL (8.4-10.2); Carbon Dioxide 28 mmol/L (22-30); Chloride 100 mmol/L (98-107); Estimated CRCL calculation 78 ml/min; Estimated Glomerular Filt Rate > 60; Glucose 105 mg/dL (65-110); Potassium 3.8 mmol/L (3.4-5.0); Sodium 135 mmol/L (137-145)
[2023-02-23] MEDS: LORazepam (*CRX) 0.5 MG TABLET PO (08:49)
[2023-02-23] MEDS: LORATADINE 10 MG TABLET PO (08:49)
[2023-02-23] MEDS: PANTOPRAZOLE 40 MG TABLET PO (08:49)
--- NOTE | 2023-02-23 10:12 | ECG_ITS ---
Measurements Intervals [place] Rate: 114 P: 45 NM: 140 QRS: 25 QRSD: 89 T: 101 QT: 324 QTc: 447 Interpretive Statements SINUS TACHYCARDIA WITH OCCASIONAL VENTRICULAR PREMATURE COMPLEXES NONSPECIFIC T-WAVE ABNORMALITY ABNORMAL ECG COMPARED TO ECG 02/22/2023 12:34:17 NO SIGNIFICANT CHANGES Electronically Signed On 02-23-2023 15:17:05 CDT by Maurice Stubbs M.D.
--- NOTE | 2023-02-23 10:51 | PM.CNCAR ---
Assessment and Plan Assessment and plan (1) Elevated troponin: Code(s): R77.8 - Other specified abnormalities of plasma proteins Status: Acute Plan 47-year-old lady with symptoms of central chest discomfort preceded by headache that began on Wednesday. Symptoms are very atypical of myocardial ischemia. She has troponin levels are slightly out of normal range but are flat and not diagnostic of an acute coronary syndrome in my opinion. She does have poor R-wave progression on her ECG yesterday but no additional or worrisome findings for ischemia or injury. She provides a history of having some sort of right lower extremity vascular procedure done up in [facility] in the remote past. Obviously we do not have any access to those details at this hospital. I am going to schedule a stress echocardiogram to noninvasively screen for coronary disease. Hopefully that will be a negative exam Robbie Agrawal MD [facility] History of Present Illness History of Present Illness Consult date/time: 02/23/23 10:51 Reason For Visit: Elevated Troponin Narrative: This is a 47-year-old lady I am seeing at the request of the hospitalist because of chest discomfort and elevation of her troponin level. She is not known to have any cardiac problems prior to this and states that she had been feeling unwell for a couple of days starting Wednesday of this past weekend. She describes feeling of the sense of some headache initially behind the right eye she thought this was a sinus headache. She then started to have some off and on pressure in the substernal region the center of her chest. This symptom would persist for the rest of the day on Wednesday and persist into yesterday. Because of this she called her PCP and was brought into the office for an evaluation. An electrocardiogram was done and apparently because of some concerns on the ECG she was sent to the emergency room for evaluation. In the emergency room she was still having some very mild symptoms like this she she was found to have an elevated troponin at 0.05 and was admitted to the hospital for observation. She has had 3 troponin levels which are all identical. Her electrocardiogram shows sinus rhythm with poor R-wave progression but no significant ischemia or injury pattern. She states she is otherwise active woman she does ride her bicycle for exercise she does not have any symptoms that are concerning for exertional angina. She says she is not known to have hypertension diabetes or dyslipidemia. She interestingly states that about 10 years ago she had a percutaneous vascular procedure done in the right lower extremity because of a dusky great toe which [facility] [place] [facility]. It is her impression that this was done by a cardiothoracic surgeon. She works as a speech pathologist she otherwise has no other coronary risk factors she does not smoke and coronary disease is not prevalent in the family in a premature fashion Review of Systems Constitutional: Constitutional: Reports no additional constitutional complaints Eyes: Eyes: Reports no additional eye complaints ENT: Reports system reviewed and no additional complaints, except as documented Cardiovascular: Cardiovascular: Reports as per HPI Respiratory: Respiratory: Reports no additional respiratory complaints Gastrointestinal: Gastrointestinal: Reports no additional gastrointestinal complaints Musculoskeletal: Musculoskeletal: Reports back pain Integumentary/Breasts: Skin/Breast: Reports system reviewed and no additional complaints, except as docu Neurologic: Reports system reviewed and no additional complaints, except as documented Endocrine: Endocrine: Reports no additional endocrine complaints Hematologic/Lymphatic: Hematologic/Lymphatic: Reports no additional hematologic/lymphatic complaints Allergic/Immunologic: Allergic/Immunologic: Reports no additional allergic/immunologic complaints
[2023-02-23 11:04] LABS: Troponin I 0.032 ng/mL (0.000-0.034)
--- NOTE | 2023-02-23 14:13 | PM.DS ---
DS: Admitting Diagnosis Discharge Date February 23 Admitting Diagnosis Chest pain DS: Discharge Diagnosis Discharge Diagnosis (1) Elevated troponin: Code(s): R77.8 - Other specified abnormalities of plasma proteins Status: Acute Assessment and Plan: elevated but downtrending troponin noted. Cardiology nurse practitioner was consulted and recommended echocardiogram in the morning. Given elevated troponin and history of hormone replacement, will check D-dimer and order CTA to assess for pulmonary embolism if D-dimer is positive. -D-dimer normal -Troponin initially elevated 0.057->0.056->0.050->0.032 -cards consult and recommendations are appreciated -Stress ECHO ordered (2) Viral syndrome: Code(s): B34.9 - Viral infection, unspecified Status: Acute Assessment and Plan: patient negative for COVID flu RSV however, troponin elevation could be mild myocarditis from other viral pathogen -viral vs bacterial sinusitis (3) Abnormal EKG: Code(s): R94.31 - Abnormal electrocardiogram [ECG] [EKG] Status: Acute Assessment and Plan: T-wave inversion in aVL and Q-wave greater than 40 milliseconds in V1/V2, cardiology SNIPPER was consulted recommended trending tropes and echocardiogram in the morning (4) Anxiety: Code(s): F41.9 - Anxiety disorder, unspecified Status: Acute Assessment and Plan: Patient exhibiting significant signs anxiety which may be contributing to her elevated blood pressure. She reports checking her blood pressure repeatedly at home. She is on several medications for anxiety at baseline and appears to be excessively anxious that she may have had heart attack. -stable. home medications are on hold at this point just because we do not have them on formulary. If she stays tonight I will see if she can have someone bring them in from home. (5) ADHD: Code(s): F90.9 - Attention-deficit hyperactivity disorder, unspecified type Status: Acute Assessment and Plan: Patient is on stimulants which may be contributing to elevated blood pressure. (6) Elevated blood pressure reading: Code(s): R03.0 - Elevated blood-pressure reading, without diagnosis of hypertension Status: Acute Assessment and Plan: Blood pressure 152/94 on admission. Now 120s/80. Slightly tachycardic but I'm inclined to think this is anxiety related. Plan Admit to med tele Stress Echocardiogram in the a.m. Diet: Heart healthy VTE prophylaxis: Lovenox med rec: Completed DS: Summary Hospital Course Hospital Course: Narrative: This is a 47-year-old female patient with a history of ADHD and anxiety who? is admitted to the hospital after she was found to have elevated troponins upon ER workup for chest pressure radiating into her back for 2 days.? Patient reports that she had a few days of viral symptoms including headache runny/stuffy nose and then she began to feel shortness of breath with chest pressure radiating into her back.? Patient also reports that her blood pressures have been high over the last few days and she has admitted to obsessively checking and getting higher and higher results.? She does not currently take blood pressure medicine but believes she needs to be on some.? Patient reported little bit of nausea no vomiting and she reported decreased appetite.? She denies chance of and no longer takes control because she is told she is going into menopause.? She does receive supplemental estradiol topically twice weekly.? will order D-dimer and if positive will order CTA of the chest.? Echocardiogram is ordered. Interval history: 02/23:? Patient is doing well this morning she denies shortness of breath but has continued chest pressure which she says is in her epigastric area and back.? She also complains of nasal congestion, unilateral tenderness to right maxillary and frontal sinus pressure and associated h
== END 2023-02-23 15:15 | disposition home or self-care (01) ==
LOC: ANHED 17:48 → ANH2MED 02-23 14:18
PROVIDERS: Emergency Medicine; Nurse Practitioner; Nurse Practitioner Acute Care; Specialist; Admitting Provider Internal Medicine; Emergency Provider Emergency Medicine; PCP Internal Medicine; Visit Provider Internal Medicine
DX: R77.8 Other specified abnormalities of plasma proteins (principal); B34.9 Viral infection, unspecified; R06.02 Shortness of breath; R00.0 Tachycardia, unspecified; R94.31 Abnormal electrocardiogram [ECG] [EKG]; Z20.822 Contact with and (suspected) exposure to COVID-19; R03.0 Elevated blood-pressure reading, without diagnosis of hypertension; F32.A Depression, unspecified; F41.9 Anxiety disorder, unspecified; F90.9 Attention-deficit hyperactivity disorder, unspecified type; K21.9 Gastro-esophageal reflux disease without esophagitis; R63.0 Anorexia; Z68.29 Body mass index [BMI] 29.0-29.9, adult; Z79.890 Hormone replacement therapy; F10.90 Alcohol use, unspecified, uncomplicated
CPT/HCPCS: 36415; 71046; 80053; 83690; 84484; 85025; 85380; 85610; 85730; 87637; 93005; 93351; 96360; 96372; 99285; A9270; G0378; J1650; J7030

== ENCOUNTER 2023-02-26 08:54 | Outpatient (CLI) | payer BC, SELFPAY ==
[2023-02-26 12:11] LABS: Alanine Aminotransferase 90 U/L (6-35); Albumin Level 4.1 g/dL (3.5-5.1); Alkaline Phosphatase 81 U/L (38-126); Anion Gap 1 mmol/L (8-16); Aspartate Amino Transferase 98 U/L (14-36); Bilirubin,Total 0.2 mg/dL (0.2-1.3); Blood Urea Nitrogen 19 mg/dL (7-17); Calcium 9.1 mg/dL (8.4-10.2); Carbon Dioxide 35 mmol/L (22-30); Chloride 100 mmol/L (98-107); Cholesterol 211 mg/dL (0-200); Estimated Glomerular Filt Rate > 60; Glucose 97 mg/dL (65-110); HDL Direct 47 mg/dL; Potassium 5.3 mmol/L (3.4-5.0); Sodium 136 mmol/L (137-145); Triglycerides 167 mg/dL (<150)
[2023-02-26 12:22] LABS: LDL Cholesterol Direct 128 mg/dL
[2023-02-26 12:39] LABS: Hemoglobin A1C 5.3 % (<5.7)
== END 2023-02-26 08:55 | disposition home or self-care (01) ==
LOC: ANHGOSHLAB 08:56
PROVIDERS: PCP Internal Medicine; Visit Provider Nurse Practitioner
DX: R73.9 Hyperglycemia, unspecified (principal); R74.8 Abnormal levels of other serum enzymes; E78.5 Hyperlipidemia, unspecified
CPT/HCPCS: 36415; 80053; 80061; 83036

== ENCOUNTER → 2023-03-04 08:18 | Outpatient (CLI) | payer BC, SELFPAY ==
--- NOTE | ~2023-03-04 | US_ITS ---
EXAMINATION: US right upper quadrant DATE: 03/04/2023 08:33 INDICATION: Abnormal levels of other serum enzymes TECHNIQUE: Multiple grayscale and Doppler ultrasound images of the abdomen were obtained. COMPARISON: None available FINDINGS: Bowel gas obscures visualization of the pancreas. The visualized portions of the pancreas a re unremarkable. The liver demonstrates increased echogenicity, heterogenous echotexture, and decreas ed through transmission. No surface nodularity. Normal hepatopetal flow in the main portal vein. The gallbladder is normal with no abnormal wall thickening, pericholecystic fluid or stones. The normal c ommon bile duct measures 5 mm. There was no sonographic Donnelly sign. IMPRESSION: 1. Diffuse hepatic steatosis Reviewed, dictated and finalized at location L.
== END ==
PROVIDERS: PCP Nurse Practitioner; Visit Provider Nurse Practitioner
DX: R74.8 Abnormal levels of other serum enzymes (principal); K76.0 Fatty (change of) liver, not elsewhere classified
CPT/HCPCS: 76705

== ENCOUNTER 2023-03-08 15:32 | Outpatient (CLI) | payer BC, SELFPAY ==
[2023-03-08 19:28] LABS: Alanine Aminotransferase 65 U/L (6-35); Albumin Level 4.5 g/dL (3.5-5.1); Alkaline Phosphatase 101 U/L (38-126); Anion Gap 6 mmol/L (8-16); Aspartate Amino Transferase 52 U/L (14-36); Bilirubin,Total 0.4 mg/dL (0.2-1.3); Blood Urea Nitrogen 19 mg/dL (7-17); Calcium 9.3 mg/dL (8.4-10.2); Carbon Dioxide 30 mmol/L (22-30); Chloride 99 mmol/L (98-107); Estimated Glomerular Filt Rate > 60; Glucose 84 mg/dL (65-110); Potassium 4.8 mmol/L (3.4-5.0); Sodium 135 mmol/L (137-145)
[2023-03-08 19:52] LABS: Iron 78 ug/dL (37-170)
[2023-03-08 20:05] LABS: Percent Iron Saturation 18 % (20-50)
[2023-03-08 20:13] LABS: Hepatitis B Surface Antigen Negative (Negative)
[2023-03-08 20:31] LABS: Hepatitis C Virus Antibody Negative (Negative)
[2023-03-09 09:07] LABS: HIV 1/2 Ab P24 Ag 4.14; HIV 1/2 Ab P24 Ag Result Reactive (Negative)
[2023-03-09 09:08] LABS: HIVc Retest 1 4.27
[2023-03-09 09:09] LABS: HIVc Retest 2 4.24
[2023-03-11 06:37] LABS: HIV 1 2 Ag Ab 4th Gen w Rflxs Nonreactive (Nonreactive)
[2023-03-12 10:38] LABS: Immunoglobulin A 110 mg/dL (47-310); TTG IGA AB <1.0 U/mL (<15.0)
== END 2023-03-08 15:33 | disposition home or self-care (01) ==
LOC: ANHGOSHLAB 15:33
PROVIDERS: PCP Nurse Practitioner; Visit Provider Nurse Practitioner
DX: R74.8 Abnormal levels of other serum enzymes (principal)
CPT/HCPCS: 36415; 80053; 82784; 83540; 83550; 84443; 86364; 86703; 86803; 87340; 87389; G0432

== ENCOUNTER 2023-11-12 00:19 | Day surgery (SDC) | payer BC, SELFPAY ==
[2023-10-29 10:14] VITALS: BMI 31.7
[2023-11-12 09:11] VITALS: BP 136/85; PULSE 101; RESP 17; TEMP 36; O2SAT 100; BMI 30.1
[2023-11-12] MEDS: LACTATED RINGERS 1,000 ML 150 ML IV CONT (09:30)
--- NOTE | 2023-11-12 09:41 | WPDANESEPPF ---
Anes - Initial Pre Proc Eval Procedure: Operation Date: 11/12/23 10:30 Proposed Procedures p Screening Colonoscopy - Sharan Han MD Date/Time: 11/12/23 09:41 Surgeon: Sharan Han MD Pre Op Diagnosis: neoplasm screening Patient Data Age: 48 Gender: F Height: 1.65 m Weight: 82.1 kg Last Vital Signs Temp 96.8 F L 11/12/23 09:11 Pulse 101 H 11/12/23 09:11 Resp 17 11/12/23 09:11 BP 136/85 11/12/23 09:11 Pulse Ox 100 11/12/23 09:11 O2 Del Method Room Air 11/12/23 09:11 Allergies Allergy/AdvReac Type Severity Reaction Status Date / Time erythromycin base Allergy Unknown Verified 11/12/23 09:10 mold Allergy Cough Verified 11/12/23 09:10 Home Medications Medication Instructions Recorded Confirmed Type omeprazole 20 mg PO BID 04/15/20 11/12/23 History atomoxetine 100 mg capsule 100 mg PO DAILY 02/04/21 11/12/23 History biotin 10,000 mcg-keratin 100 mg 1 tablet PO DAILY 02/04/21 11/12/23 History tablet (Biotin Plus Keratin) desvenlafaxine succinate 100 mg 100 mg PO DAILY 02/04/21 11/12/23 History tablet,extended release 24 hr lorazepam 0.5 mg tablet (Ativan) 0.5 mg PO BID PRN Anxiety 02/04/21 11/12/23 History magnesium 200 mg tablet 400 mg PO DAILY 02/04/21 11/12/23 History multivitamin 1 tablet PO DAILY 02/04/21 11/12/23 History fluticasone propionate 50 1 spray intranasal Q12H #16 grams 09/17/21 11/12/23 Rx mcg/actuation nasal spray,suspension (Flonase Allergy Relief) fexofenadine 60 mg tablet (Ro 60 mg PO DAILY 02/11/22 11/12/23 History Allergy) azelastine 137 mcg (0.1 %) nasal 137 mcg intranasal Q12H PRN 02/22/23 11/12/23 History spray aerosol allergies cetirizine 10 mg tablet (Zyrtec) 10 mg PO DAILY 02/22/23 11/12/23 History estradiol 0.1 mg/24 hr semiweekly 1 patch transdermal 2XW 02/22/23 11/12/23 History transdermal patch (Lyllana) trazodone 100 mg tablet 150 mg PO HS PRN Sleep 02/22/23 11/12/23 History coenzyme Q10 100 mg capsule 100 mg PO DAILY 02/26/23 11/12/23 History (CoQ-10) Patient hx anesthesia problems: none Family hx anesthesia problems: none Results Review: All pre-operative results and documents have been reviewed as part of the pre-operative evaluation. [facility] Past Medical History Medical History ADHD Allergies Anxiety Anxiety Depression with anxiety GERD (gastroesophageal reflux disease) Family History Family History Father Heart disease Mother Diabetes mellitus Depression Thyroid disease Congestive heart failure Sibling Asthma Depression Father Heart attack Mother COPD (chronic obstructive pulmonary disease) Congestive heart failure Foot ulcer due to secondary DM Diabetes mellitus Social History Social History (Updated 10/27/23 @ 09:54 by Evette Barrera CMA) Smoking status: Never smoker Alcohol intake: current Drinks per week: 4 Alcohol use details: Socially Substance use: never Substance use type: does not use Do You Feel Safe in your Home?: Yes Lack of Transportation: No Lack of Food: Never True Current Housing: I Have Housing Concerned About Future Housing: No Difficulty Paying Gas/Electric Bills: No Difficulty Paying for Meds: No Currently Unemployed: No Education: Master's Degree or Higher Difficulty w/ Childcare or Family Care: No Living arrangements: alone Spiritual care concerns: No Anes - Eval Final PreProcedure Day of Procedure 11/12/23 09:41 Patient weight: obese Heart: regular rate and rhythm Lungs: clear to auscultation Airway: Mallampati scale class II Neurological: alert and oriented Last oral intake: >/= 8 hours ASA classification: II Emergent: no Anesthetic plan: proceed Anesthesia type and monitoring: general GIVS and standard monitoring Results Review:
--- NOTE | 2023-11-12 10:29 | PM.HPGS ---
History of Present Illness History of Present Illness Consent: Risks, benefits, and alternatives have been discussed and questions answered. Patient agrees to proceed with procedure. Chief complaint: neoplasm screening Narrative: Pamella Garay is a 48 year old female here for first screening colonoscopy Review of Systems Review of Systems: All systems reviewed & are unremarkable except as noted in HPI and below PMFSH Past Medical History Medical History ADHD Allergies Anxiety Anxiety Depression with anxiety GERD (gastroesophageal reflux disease) Family History Family History Father Heart disease Mother Diabetes mellitus Depression Thyroid disease Congestive heart failure Sibling Asthma Depression Father Heart attack Mother COPD (chronic obstructive pulmonary disease) Congestive heart failure Foot ulcer due to secondary DM Diabetes mellitus Social History Social History (Updated 10/27/23 @ 09:54 by Evette Barrera CMA) Smoking status: Never smoker Alcohol intake: current Drinks per week: 4 Alcohol use details: Socially Substance use: never Substance use type: does not use Do You Feel Safe in your Home?: Yes Lack of Transportation: No Lack of Food: Never True Current Housing: I Have Housing Concerned About Future Housing: No Difficulty Paying Gas/Electric Bills: No Difficulty Paying for Meds: No Currently Unemployed: No Education: Master's Degree or Higher Difficulty w/ Childcare or Family Care: No Living arrangements: alone Spiritual care concerns: No Meds Home Medications and Allergies Home Medications Medication Instructions Recorded Confirmed Type omeprazole 20 mg PO BID 04/15/20 11/12/23 History atomoxetine 100 mg capsule 100 mg PO DAILY 02/04/21 11/12/23 History biotin 10,000 mcg-keratin 100 mg 1 tablet PO DAILY 02/04/21 11/12/23 History tablet (Biotin Plus Keratin) desvenlafaxine succinate 100 mg 100 mg PO DAILY 02/04/21 11/12/23 History tablet,extended release 24 hr lorazepam 0.5 mg tablet (Ativan) 0.5 mg PO BID PRN Anxiety 02/04/21 11/12/23 History magnesium 200 mg tablet 400 mg PO DAILY 02/04/21 11/12/23 History multivitamin 1 tablet PO DAILY 02/04/21 11/12/23 History fluticasone propionate 50 1 spray intranasal Q12H #16 grams 03/23/22 05/17/24 Rx mcg/actuation nasal spray,suspension (Flonase Allergy Relief) fexofenadine 60 mg tablet (Ro 60 mg PO DAILY 02/11/22 11/12/23 History Allergy) azelastine 137 mcg (0.1 %) nasal 137 mcg intranasal Q12H PRN 02/22/23 11/12/23 History spray aerosol allergies cetirizine 10 mg tablet (Zyrtec) 10 mg PO DAILY 02/22/23 11/12/23 History estradiol 0.1 mg/24 hr semiweekly 1 patch transdermal 2XW 02/22/23 11/12/23 History transdermal patch (Lyllana) trazodone 100 mg tablet 150 mg PO HS PRN Sleep 02/22/23 11/12/23 History coenzyme Q10 100 mg capsule 100 mg PO DAILY 02/26/23 11/12/23 History (CoQ-10) Allergies Allergy/AdvReac Type Severity Reaction Status Date / Time erythromycin base Allergy Unknown Verified 11/12/23 09:10 mold Allergy Cough Verified 11/12/23 09:10 Vital Signs Vital Signs - 24 hr 11/12/23 09:11 Temperature 96.8 F L Pulse Rate 101 H Respiratory Rate 17 Blood Pressure 136/85 Pulse Oximetry 100 Oxygen Delivery Room Air Exam Const: General: comfortable and no acute distress HENMT: Face/Nose/Sinus: Normal nares present Eyes: General: appearance normal, both eyes and all related structures Neck: Neck: no JVD Resp: Auscultation: clear to auscultation bilaterally Cardio: Rate: regular rate Rhythm: regular rhythm GI: Inspection: non-distended GI Palp: Yes Soft to palpation Skin: General skin exam: normal color Neuro: General: gait normal Speech: normal speech Extrem: General:
[2023-11-12 10:43] VITALS: BP 135/71; PULSE 97; RESP 18; O2SAT 99
[2023-11-12 10:53] VITALS: BP 139/80; PULSE 95; RESP 22; O2SAT 99
[2023-11-12 11:03] VITALS: BP 128/90; PULSE 84; RESP 22; O2SAT 100
== END 2023-11-12 11:07 | disposition home or self-care (01) ==
PROVIDERS: PCP Nurse Practitioner; Referring Provider Internal Medicine; Visit Provider Internal Medicine Gastroenterology
PROC: 0DJD8ZZ Inspection of Lower Intestinal Tract, Via Natural or Artificial Opening Endoscopic (ICD-10-PCS; CPT 45378; principal; 2023-11-12 10:30)
DX: Z12.11 Encounter for screening for malignant neoplasm of colon (principal); K63.5 Polyp of colon; K64.8 Other hemorrhoids; F90.9 Attention-deficit hyperactivity disorder, unspecified type; K21.9 Gastro-esophageal reflux disease without esophagitis; F41.8 Other specified anxiety disorders; E66.9 Obesity, unspecified; Z68.30 Body mass index [BMI] 30.0-30.9, adult
CPT/HCPCS: 45380; 88305; J2704; J7120

== ENCOUNTER 2024-06-06 09:32 | Outpatient (CLI) | payer BC, SELFPAY ==
--- NOTE | ~2024-06-06 | US_ITS ---
Abdominal Sonogram: Real-time sonographic imaging of the abdomen was performed. Clinical History: Fatty liver Findings: The liver appears mildly echogenic with no evidence of mass lesion or bile duct dilatation . Main portal vein demonstrates normal direction of flow. The spleen is normal in size without eviden ce of focal lesion. The gallbladder is well distended, and appears normal with no evidence of gallst one or wall thickening. The common bile duct measures 4 mm. The visualized pancreas, aorta, and IVC are unremarkable. The right kidney measures 9.8 cm in length and the left kidney measures 10.9 cm. There is no hydronephrosis or renal calculus. Impression: Probable mild fatty infiltration of the liver. Reviewed, dictated and finalized at location M. TABLE WORKER Impression: Probable mild fatty infiltration of the liver.
== END 2024-06-06 09:33 | disposition home or self-care (01) ==
LOC: GOSHIMG 09:32
PROVIDERS: PCP Nurse Practitioner; Visit Provider Clinical Nurse Specialist
DX: R10.31 Right lower quadrant pain (principal)
CPT/HCPCS: 76700

== ENCOUNTER 2024-07-28 09:38 | Outpatient (CLI) | payer BC, SELFPAY ==
--- NOTE | ~2024-07-28 | CT_ITS ---
CLINICAL INDICATION: Right-sided abdominal pain COMPARISON: Reference was made to ultrasound examinations of the abdomen dated 03/04/2023 and 4. TECHNIQUE: Multiple contiguous axial images of the abdomen and pelvis were performed without the admi nistration of intravenous contrast The dose-length product (DLP) was 1018.41 mGy-cm. Automated exposure control and iterative reconstruction technique were employed. FINDINGS/OBSERVATIONS: Visualized lower thorax: The bilateral lung bases are clear. The heart is of normal size, without pericardial effusion. Small hiatal hernia is present. Liver: A well-circumscribed focus of fluid attenuation is identified within segment 8 of the liver me asuring 22 x 24 x 27 mm (anterior to posterior x medial to lateral x cranial to caudal dimension). Th is focus demonstrates benign features, and is likely a cyst or hemangioma. The remainder of the liver demonstrates otherwise homogeneous attenuation and is not enlarged measuri ng 18 cm in longitudinal dimension. Gallbladder and biliary system: The gallbladder is only minimally distended, and otherwise unremarkable. Pancreas: Limited evaluation of the pancreas secondary to the lack of intravenous contrast. Spleen: The spleen demonstrates homogeneous attenuation and is not enlarged measuring 6 cm in longitudinal di mension. Kidneys: The bilateral kidneys are unremarkable, without hydronephrosis or renal calculi. Adrenal glands: Unremarkable. Gastrointestinal tract: Colonic diverticulosis without surrounding inflammatory change. Fecal stasis within the colon. Appendix: The appendix is of normal caliber (axial series, images 125 through 139) Vasculature: Unremarkable. Lymph nodes: No pathologically enlarged or morphologically suspicious lymph nodes within the retroperitoneum or at the root of the mesentery. Pelvic structures: The bladder is decompressed, limiting its evaluation. The uterus is retroverted and retroflexed. Limited definition of the bilateral ovaries, insufficient for comment Body wall and musculoskeletal: Small fat-containing umbilical hernia. Degenerative disease within the lower lumbar spine with osteophyte formation, disc space narrowing, e ndplate changes and vacuum phenomena. This is most prominent the levels of L4/L5 and L5/S1. Straightening of the normal lordotic curvature of the lumbar spine is also present, likely muscular i n origin. IMPRESSION: Well-circumscribed lesion within the right lobe of the liver, with benign morphology, likely represen ting a simple cyst versus a hemangioma. Contrast-enhanced CT or MRI may be performed for confirmation (with liver mass protocol). Degenerative disease within the lower lumbar spine. Fat-containing umbilical hernia. Normal gallbladder. Normal appendix. Reviewed, dictated and finalized at location A. HERSEAL TECHNICIAN IMPRESSION: Well-circumscribed lesion within the right lobe of the liver, with benign morph ology, likely representing a simple cyst versus a hemangioma. Contrast-enhanced CT or MRI may be performed for confirmation (with liver mass protocol). Degenerative disease within the lower lumbar spine. Fat-containing umbilical hernia. Normal gallbladder. Normal appendix.
== END 2024-07-28 09:39 | disposition home or self-care (01) ==
PROVIDERS: PCP Nurse Practitioner; Visit Provider Nurse Practitioner
DX: K76.9 Liver disease, unspecified (principal); M51.369 Other intervertebral disc degeneration, lumbar region without mention of lumbar back pain or lower extremity pain; K42.9 Umbilical hernia without obstruction or gangrene
CPT/HCPCS: 74176

== ENCOUNTER 2024-08-30 10:05 | Outpatient (CLI) | payer BC, SELFPAY ==
--- NOTE | ~2024-08-30 | XR_ITS ---
XR chest 2V Ordering provider: Any Kinsey NP History: 49 years Female with . R05.9 - Cough, unspecified . Comparison: February 22, 2023 FINDINGS: MEDIASTINUM: The cardiac silhouette is not enlarged. LUNGS: No infiltrates, effusions or pneumothorax. OTHER: No free air under the diaphragm. IMPRESSION: No acute cardiopulmonary pathology. Reviewed, dictated and finalized at location A. [employer]ER
== END 2024-08-30 10:06 | disposition home or self-care (01) ==
LOC: GOSHIMG 10:06
PROVIDERS: PCP Nurse Practitioner; Visit Provider Nurse Practitioner
DX: R05.9 Cough, unspecified (principal)
CPT/HCPCS: 71046

== ENCOUNTER 2024-08-31 11:46 | Outpatient (CLI) | payer BC, SELFPAY ==
--- NOTE | ~2024-08-31 | MM_ITS ---
EXAMINATION: MM screening [facility] BI w leda HISTORY: Screening mammogram TECHNIQUE: Craniocaudal and mediolateral oblique 3-D tomosynthesis images were obtained and synthetic 2-D images were generated. CAD analysis was submitted and interpreted. COMPARISON: 01/21/2023, 06/13/2021, 02/01/2020, 01/26/2020 BREAST PARENCHYMAL COMPOSITION:Not Dense. The breasts are almost entirely fatty FINDINGS: No suspicious mass, calcification, or architectural distortion are identified in either lazarus ast to suggest malignancy. There has been no suspicious interval change. IMPRESSION: No mammographic evidence of malignancy. Recommend routine screening mammography in one year. BI-RADS Category 1: Negative Reviewed, dictated and finalized at location . STONE SPLITTER
== END 2024-08-31 11:47 | disposition home or self-care (01) ==
PROVIDERS: PCP Nurse Practitioner; Visit Provider Obstetrics & Gynecology
DX: Z12.31 Encounter for screening mammogram for malignant neoplasm of breast (principal)
CPT/HCPCS: 77063; 77067

== ENCOUNTER 2025-04-19 09:43 | Outpatient (CLI) | payer BC, SELFPAY ==
--- NOTE | ~2025-04-19 | US_ITS ---
EXAMINATION: US pelvic complete w TV INDICATION: Pelvic pain on the right Comparison:No prior studies for comparison. TECHNIQUE: Multiple transabdominal and endovaginal sonographic images of the pelvis performed. FINDINGS: The uterus measures 8.1 x 8.6 x 4.1 cm. Separate endometrium is identified at the fundus measuring 7 mm on the right and 5 mm on the left. There are are fibroids, largest 4 right aspect of the uterus measuring 3.4 x 2.9 x 2.8 cm. There is a smaller 1.6 cm fibroid. The ovaries are not visualized. No abnormal free fluid. There is no free fluid in the pelvis. There are no abnormal masses seen on either side. IMPRESSION: 1. Uterine fibroids, largest on the far right measuring 3.46 m. 2: Asymmetric or possibly duplicated endometrium measuring 7 mm on the right and 5 mm on the left. This could reflect distortion from adjacent fibroids are very uterine anatomy. Consider correlation with pelvic MRI for better delineation of endometrial contour and fibroid mapping. Reviewed, dictated and finalized at location O. IMPRESSION: 1. Uterine fibroids, largest on the far right measuring 3.46 m. 2: Asymmetric or possibly duplicated endometrium measuring 7 mm on the right a nd 5 mm on the left. This could reflect distortion from adjacent fibroids are v laya uterine anatomy. Consider correlation with pelvic MRI for better delineatio n of endometrial contour and fibroid mapping.
== END 2025-04-19 09:44 | disposition home or self-care (01) ==
LOC: GOSHIMG 09:44
PROVIDERS: PCP Obstetrics & Gynecology; Visit Provider Obstetrics & Gynecology
DX: R10.21 Pelvic and perineal pain right side (principal); D25.9 Leiomyoma of uterus, unspecified
CPT/HCPCS: 76830; 76856

== ENCOUNTER 2025-06-26 09:38 | Outpatient (CLI) | payer BC, SELFPAY ==
--- NOTE | ~2025-06-26 | MR_ITS ---
EXAMINATION: MR abdomen wo/w con DATE: 06/26/2025 10:44 INDICATION: Liver disease. TECHNIQUE: Magnetic resonance imaging (MRI) of the abdomen was performed without and with 18 mL MultiHance intravenous contrast. COMPARISON: CT abdomen and pelvis 07/28/2024 FINDINGS: There is diffuse hepatic steatosis. There is a 2.6 cm cyst in right hepatic lobe. The gallbladder, spleen, pancreas, adrenal glands, and right kidney are normal. There is a 6 mm cyst in left kidney. There are no dilated loops of bowel. There are no pathologically enlarged lymph nodes. There is no free intraperitoneal fluid. IMPRESSION: 1. Benign cyst in the liver. 2. Diffuse hepatic steatosis. Reviewed, dictated and finalized at location E. R [facility]ER
--- OUTSIDE RECORDS SUMMARY | 2025-06-26 09:54 | XMS_ITS | Clinical Summary ---
Author Organization [address] Address [address] [place] [id number] Care Team Providers Care Braille Teacher Name Role Phone Subhash Lucas DO Primary Care Provider [phone] Allergies Active Allergy Reactions Criticality Noted Date Comments Erythromycin Base Unknown 07/30/2022 Cerner Allergy Text Annotation: erythromycin Medications atomoxetine (STRATTERA) 100 mg capsule Take 1 capsule (100 mg total) by mouth every morning 06/03/20 22 Active biotin 5 mg capsule Take 1 capsule (1 tablet total) by mouth Active desvenlafaxine ER (PRISTIQ) 100 mg 24 hr tablet Take 1 tablet (100 mg total) by mouth daily 06/24/20 22 Active docosahexaenoi c acid-epa 120-180 mg capsule Take 1 capsule by mouth Active LORazepam (ATIVAN) 0.5 mg tablet Take by mouth 07/20/19 23 Active magnesium oxide (MAG-OX) 415 mg (250 mg elemental) tablet Take 250 mg by mouth Active multivitamin with minerals tablet Take 1 tablet by mouth Active omeprazole (PriLOSEC) 40 mg capsule Take 1 capsule (40 mg total) by mouth daily Active propranoloL (INDERAL) 20 mg tablet TAKE 1 TO 2 TABLETS BY MOUTH NEEDED FOR ANXIETY 06/03/20 22 Active meloxicam (MOBIC) 15 mg tablet Take 1 tablet (15 mg total) by mouth daily 08/10/19 23 Active amLODIPine (NORVASC) 5 mg tablet Take 1 tablet (5 mg total) by mouth daily 05/03/20 25 Active rosuvastatin (CRESTOR) 10 mg tablet Take 1 tablet (10 mg total) by mouth daily 05/04/20 25 Active estradioL (ESTRACE) 2 mg tablet Take 1 tablet (2 mg total) by mouth daily 04/30/20 Active progesterone (PROMETRIUM) 200 mg capsule Take 2 capsules (400 mg total) by mouth 05/07/20 Active traZODone (DESYREL) 100 mg tablet TAKE 2 TABLETS BY MOUTH EVERY EVENING NEEDED FOR INSOMNA 03/14/20 Active fluticasone propionate (FLONASE) 50 mcg/actuation nasal spray Administer 2 sprays into affected nostril(s) daily 04/21/20 025 Discontinued(St op Taking at Discharge) Lessina 0.1-20 mg-mcg per tablet Take 1 tablet by mouth daily 07/08/19 025 Discontinued traZODone (DESYREL) 50 mg tablet Take by mouth nightly 10/03/19 025 Discontinued(Th erapy completed) mupirocin (BACTROBAN) 2 % ointment Apply topically 3 (three) times a day 22 g 07/30/19 025 Discontinued(St op Taking at Discharge) benzonatate (TESSALON) 100 mg capsuleIndicat ions:Cough Take 1 capsule (100 mg total) by mouth 3 (three) times a day as needed for cough 21 capsule 10/14/19 025 Discontinued(St op Taking at Discharge) progesterone (PROMETRIUM) 100 mg capsule Take 1 capsule (100 mg total) by mouth daily 06/26/20 025 Discontinued(Th erapy completed) Lyllana 0.1 mg/24 hr APPLY 1 PATCH TO SKIN TWICE A WEEK 05/24/20 025 Discontinued cyclobenzaprin e (FLEXERIL) 10 mg tablet Take 1 tablet (10 mg total) by mouth 2 (two) times a day as needed 05/11/20 025 Discontinued(St op Taking at Discharge) Active Problems Problem Noted Date Diagnosed Date ADD (attention deficit disorder) 10/13/2022 10/13/2022 Depression 10/13/2022 10/13/2022 Tachycardia 10/13/2022 10/13/2022 Acute sinusitis 2019 10/13/2022 Overview (10/13/2022): Last Assessment & Plan: Push fluids, rest...take tylenol, motrin per manufacters recommendation as directed..take oral antibiotic Augmentin twice a day for 10 days if no improvement in symptoms in another 3 to 4 days as prescribed, use flonase nasal spray as directed..can use otc Zyrtec as currently taking....follow-up after completing oral antibiotic or sooner if has concerns or complaints...return to clinic if no improvement in symptoms or worsening symptoms..go to ER or call 911 if has difficulties breathing. Mixed hyperlipidemia 03/06/2019 10/13/2022 Environmental and seasonal allergies 02/17/2019 10/13/2022 Overview (10/13/2022): Last Assessment & Plan: Will refer to marketing segment manager per pt request. GERD (gastroesophageal reflux disease) 9 10/13/2022 PVD (peripheral vascular disease) with claudicat ion 03/23/2016 10/13/2022 Encounters Date Type Department Care Team Description 06/06/2025 9:49 AM ELECTRONIC TESTER - 06/06/2025 10:37 AM ELECTRONIC TESTER Surgery [facility] [place] [address] [place] [id number] David Tran MD DILATION AND CURETTAGE/HYSTEROSC OPY WITH MYOSURE 06/06/2025 9:21 AM ELECTRONIC TESTER Anesthesia Event [facility] OR [address] [place] [phone] Cristela Rock MD IuscoMarshal MD 06/06/2025 7:20 AM ELECTRONIC TESTER - 06/06/2025 12:25 PM ELECTRONIC TESTER Hospital Encounter [facility] [place] [address] [place] [id number] David Tran MD Endometrial thickening on ultrasound Discharge Disposition: Discharge to home or self care 06/04/2025 11:20 AM ELECTRONIC TESTER Lab [facility] [address] [place] [id number] Pre-op testing 06/04/2025 11:18 AM ELECTRONIC TESTER - 06/04/2025 11:59 PM ELECTRONIC TESTER Hospital Encounter [facility] Cardiac Testing [address] [place] [phone] Pre-op testing Discharge Disposition: Discharge to home or self care 06/01/2025 Orders Only [facility] Pre Admit Testing [address] [place] [phone] Jeanna Tilley RN Pre-op testing (Primary Dx) 05/31/2025 Orders Only [facility] Pre Admit Testing [address] [place] [phone] Jeanna Tilley RN Pre-op testing (Primary Dx) 05/30/2025 9:30 AM ELECTRONIC TESTER Office Visit [facility] [place] [address] [place] [phone] Dayana Loco, EMELINA Chronic pruritic rash in adult (Primary Dx) 05/25/2025 Orders Only [facility] Pre Admit Testing [address] [place] [phone] Latosha Mitchell RN from Last 3 Months Surgical History Surgery Date Site/Laterality Comments OVARIAN CYST REMOVAL ESOPHAGOGASTRODUODENOSCOPY COLONOSCOPY ESOPHAGEAL MANOMETRY DILATION Right Of vein to right lower leg. Medical History Medical History Date Comments Mixed hyperlipidemia 03/06/2019 GERD (gastroesophageal reflux disease) 9 Environmental and seasonal allergies 02/17/2019 Last Assessment & Plan: Will refer to marketing segment manager per pt request. Depression 10/13/2022 ADD (attention deficit disorder) 10/13/2022 PVD (peripheral vascular dis ease) with claudication 03/23/2016 Tachycardia 10/13/2022 Motion sickness Hypertension Anxiety Abnormal lower esophageal sp hincter relaxation cyrcopharyngeal dysfunction Social History Tobacco Use Types Packs/Day Years Used Date Smoking Tobacco: Never Smokeless Tobacco: Never Tobacco Cessation:Counseling Given: Not Answered Alcohol Use Standard Drinks/Week Comments Yes 0 (1 standard drink = 0.6 oz pur e alcohol) AUDIT-C Answer Date Recorded Q1: How often do you have a drink containing alc ohol? Monthly or less 06/06/2025 Q2: How many drinks containi ng alcohol do you have on a typical day when you are drinking? 1 or 2 06/06/2025 Q3: How often do you have si x or more drinks on one occasion? Never 06/06/2025 Personal Safety Answer Date Recorded Have you ever been in or are you currently in a harmful physical or emotional relationship or is someone making you feel afraid or unsafe? Denies 06/06/2025 Comments No Sex and Gender Information Value Date Recorded Sex Assigned at Not on file Legal Sex Female 11:29 AM ELECTRONIC TESTER Gender Identity Not on file Sexual Orientation Not on file Last Filed Vital Signs Vital Sign Reading Time Taken Comments Blood Pressure 156/98 06/06/2025 12:10 PM ELECTRONIC TESTER Pulse 80 06/06/2025 12:10 PM ELECTRONIC TESTER Temperature 36.1 C (97 F) 06/06/2025 11:40 AM ELECTRONIC TESTER Respiratory Rate 16 06/06/2025 12:10 PM ELECTRONIC TESTER Oxygen Saturation 100% 06/06/2025 12:10 PM ELECTRONIC TESTER Inhaled Oxygen Concentration - - Weight 86.7 kg (191 lb 1.6 oz) 06/06/2025 7:27 A M ELECTRONIC TESTER Height 166.4 cm (5' 5.5) 06/06/2025 7:27 AM ELECTRONIC TESTER Body Mass Index 31.32 06/06/2025 7:27 AM ELECTRONIC TESTER Plan of Treatment Health Maintenance Due Date Last Done Comments Breast Cancer Screening-Mammogram 1975 Cervical Cancer Screening 1975 Colon Cancer Screening-Colonoscopy 1975 Depression Screening 1973 Hepatitis C Screening 1973 Hepatitis B Screening 1991 Regular Well Visit/Exam 18-64 1991 Zoster Vaccine (1 of 2) 2023 Covid-19 Vaccine (4 - 2024-2 6 season) 2025 05/02/2021, 07/17/2020, 06/26/2020 Influenza Vaccine (#1) 2025 , 03/28/2018, 05/04/2016 DTaP/Tdap/Td Vaccine (2 - Td or Tdap) 08/25/2027 08/25/2017, 10/03/1999 Pneumococcal vaccine <65 Aged Out No longer eligible based on patient's age to complete this topic Procedures Procedure Name Priority Date/Time Associated Diagnosis Comments SURGICAL PATHOLOGY Routine 06/06/2025 9: 54 AM ELECTRONIC TESTER Endometrial thickening on ultrasound DE AN PROCEDURE PLACEHOLDER Routine 06/06/2025 9:33 AM ELECTRONIC TESTER DE AN ELECTIVE SUPRAGLOTTIC AIRWAY Routine 06/06/2025 9:33 AM ELECTRONIC TESTER DILATION AND CURETTAGE/HYSTEROSCOP Y 06/06/2025 9:21 AM ELECTRONIC TESTER THICKENED ENDOMETRIUM, ABNORMAL FINDINGS ON DIAGNOSTIC IMAGING OF THE SPECIFIED BODY STRUCTURES EGFR Routine 06/04/2025 11:55 AM ELECTRONIC TESTER Pre-op testing BASIC METABOLIC PANEL Routine 06/04/2025 11:55 AM ELECTRONIC TESTER Pre-op testing CBC WITHOUT DIFFERENTIAL Routine 06/04/2025 11:55 AM ELECTRONIC TESTER Pre-op testing ECG 12-LEAD Routine 06/04/2025 11:48 AM ELECTRONIC TESTER Pre-op testing from Last 3 Months Results * Surgical pathology (06/06/2025 9:54 AM ELECTRONIC TESTER) Tissue (Endometrial curettings) 06/06/2025 9:54 AM ELECTRONIC TESTER Narrative PATHOLOGY [facility] - 06/07/2025 4:05 PM ELECTRONIC TESTER [facility] Department of Pathology [address] [place] [address] Note to Patients: This report may contain a detailed description of human tissue sent by a health care provider to the laboratory for pathologic evaluation. The content of this report is essential for diagnosis and may provide important critical findings. This information may be unfamiliar to patients to review without a medical professional present. It is advised that the patient review this report in the presence of a health care provider who can answer questions and explain the details. Final Report Patient Name: PAMELLA JUÁREZ : 1975 (Age: 50) Gender: F Address: [address] [place] [address] Hospital #: [id number] Service: DEFAULT Location: Patient Type: [facility] OUTPATIENT Taken: 06/06/2025 Received: 06/06/2025 Accessioned: 06/06/2025 Reported: 06/07/2025 Physician(s): Albaro Rodrigues DO Diagnosis: Uterus, endometrium, curettage - Fragments of a benign endometrial polyp - Fragments of asynchronous pattern endometrium, consistent with exogenous hormone therapy - Scant fragments of unremarkable endocervical mucosa - No evidence of endometrial hyperplasia or malignancy Garcia Kapoor M.D., Ph.D. Report Electronically Reviewed and Signed Out By Garica Kapoor M.D., Ph.D. 06/07/2025 16:05:48 Specimen(s) Received: A: Endometrial curettings Microscopic Description: Unless gross-only is specified, the final diagnosis for each specimen is based on a microscopic examination of each tissue sample. Clinical History: The patient is a 50-year-old woman with thickened endometrium and abnormal findings on diagnostic imaging. Operative procedure: Hysteroscopic dilation and curettage with MyoSure. Gross Description Received in formalin, labeled with the patient s identifiers and endometrial curettings, is a mesh collection device and Telfa with a 2.5 x 2.0 x 0.8 cm aggregate of mucoid material admixed with blood clot and golden-pink tissue fragments. Filtered and entirely submitted. Labeled A1. Jar 0. jjmhb/06/06/2025 14:26 GUILLERMO Dennis, PA (ASCP) Microscopic slide review and interpretation for this case was performed at [facility], Department of Surgical Pathology, [address] [facility] [address] [place] [id number], [place] [address] CLIA # [id number] us David Tran MD LAB PATHOLOGY ORDERABLES Fi nal Result PATHOLOGY [facility] * DE AN ELECTIVE SUPRAGLOTTIC AIRWAY, DE AN PROCEDURE PLACEHOLDER (06/06/2025 9:33 AM ELECTRONIC TESTER) Narrative Fam Medrano CRNA - 06/06/2025 9:33 AM ELECTRONIC TESTER Fam Medrano CRNA 06/06/2025 9:34 AM Airway Patient location: OR Urgency: elective Indications for airway management: anesthesia Difficult airway: no Staff: Supervising provider: Cristela Rock MD Placed by: MACHINES TECHNICIAN: Fam Medrano CRNA Emergent airway documentation: Risks and benefits discussed: yes Consent obtained: yes Consent given by: patient Airway prep: Preoxygenated: yes Patient position: sniffing Mask difficulty assessment: 1 - vent by mask Spontaneous ventilation during airway: absent Sedation level during airway: deep Final airway details: Final airway type: supraglottic airway Final supraglottic airway: classic SGA size: 4 Number of attempts: 1 us Cristela Rock MD ANESTHESIA ORDERABLES Final Resu lt * eGFR (06/04/2025 11:55 AM ELECTRONIC TESTER) eGFR >90 >=60 mL/min/1. 73 m2 Comment: Interpretive Data Reference Interval Normal >/= 90 mL/min/1.73m2 Mildly decreased* 60 - 89 mL/min/1.73m2 Mildly to moderately decreased 45 - 59 mL/min/1.73m2 Moderately to severely decreased 30 - 44 mL/min/1.73m2 Severely decreased 15 - 29 mL/min/1.73m2 Kidney Failure < 15 mL/min/1.73m2 *Relative to young adult level Estimated glomerular filtration rate is determined by the 2020 CKD-EPI equation recommended by the National Kidney Foundation (A Unifying Approach to GFR Estimation: Recommendations of the NKF-ASK Task Force on Reassessing the Inclusion of Race in Diagnosing Kidney Disease, JASN 2020). The CKD-EPI equation should not be used for patients with unstable renal function and has not been validated in children and those over 70. Current interpretive data was last reviewed 2021. Testing performed by: [facility], [address] [place] [address]., [address] Blood 06/04/2025 11:5 5 AM ELECTRONIC TESTER 06/04/2025 11:58 AM ELECTRONIC TESTER us Maurice Storm MD LAB BLOOD ORDERABL ES Final Result JANNY [address] [facility] Department [place] [address] * CBC without differential (06/04/2025 11:55 AM ELECTRONIC TESTER) WBC 6.55 3.80 - 9.90 K/cumm Comment:Testing performed by : [address] [address] Hgb 13.4 11.9 - 15.5 g/dL JANNY Comment:Testing performed by : [address] [address] Hct 39.6 35.6 - 45.5 % JANNY Comment:Testing performed by : [address] [address] Plt 289 150 - 400 K/cumm JANNY Comment:Testing performed by : [address] [address] MPV 9.6 9.1 - 12.3 fL JANNY Comment:Testing performed by : [address] [address] RBC 4.36 3.90 - 5.20 M/cumm JANNY BURRELL Comment:Testing performed by : [address] [address] MCV 90.8 81.3 - 96.4 fL JANNY Comment:Testing performed by : [address] [address] MCH 30.7 27.1 - 33.3 pg JANNY Comment:Testing performed by : [address] [address] MCHC 33.8 32.3 - 35.7 g/dL JANNY Comment:Testing performed by : [address], [address] RDW CV 12.5 11.1 - 14.9 % JANNY Comment:Testing performed by : [address] [place]., [address] RDW SD 41.5 35.7 - 48.1 fL JANNY Comment:Testing performed by : [address] [address] NRBC abs 0.00 0.00 - 0.01 K/cumm JANNY BURRELL Comment:Testing performed by : [address] [address] Blood 06/04/2025 11:5 5 AM ELECTRONIC TESTER 06/04/2025 11:58 AM ELECTRONIC TESTER Narrative JANNY - 06/04/2025 12:01 PM ELECTRONIC TESTER PRE SURGICAL TESTING ONLY--* No surgery found *-* Cannot find OR case *-* Surgery not found *-@ANPROCEDURE@ Maurice Storm MD LAB BLOOD ORDERABL ES Final Result JANNY [facility] Department [place] [address] * Basic metabolic panel (06/04/2025 11:55 AM ELECTRONIC TESTER) Sodium 139 135 - 145 mmol/L Comment:Testing performed by : [address] [address] Potassium, pl 4.3 3.3 - 4.9 mmol/L JANNY BURRELL Comment:Testing performed by : [address] [address] Chloride 102 97 - 110 mmol/L JANNY Comment:Testing performed by : [address] [address] CO2 26 22 - 32 mmol/L JANNY Comment:Testing performed by : [address] [address] Anion gap 11 2 - 15 mmol/L JANNY Comment:Testing performed by : [address] [address] BUN 17 6 - 25 mg/dL JANNY Comment:Testing performed by : [address] [address] Creatinine 0.76 0.60 - 1.10 mg/dL JANNY Comment:Testing performed by : [address] [address] Glucose 120 70 - 199 mg/dL JANNY Comment: Interpretive Data Fasting glucose >/= 126 mg/dl is diagnostic for diabetes. Fasting is defined as no caloric intake for at least 8 hours. Fasting glucose between 100 mg/dl to 125 mg/dl is diagnostic of prediabetes. In a patient with classic symptoms of hyperglycemia or hyperglycemic crisis, a random glucose >/= 200 mg/dl is diagnostic for diabetes. In the absence of unequivocal hyperglycemia, results should be confirmed by repeat testing. The classification and Diagnosis of Diabetes Diabetes Care 2021; 46: S19-S40. Current interpretive data was last revised 2022. Testing performed by: [address] [address] Calcium 9.4 8.5 - 10.3 mg/dL JANNY Comment:Testing performed by : [address] [address] Blood 06/04/2025 11:5 5 AM ELECTRONIC TESTER 06/04/2025 11:58 AM ELECTRONIC TESTER Narrative JANNY - 06/04/2025 12:36 PM ELECTRONIC TESTER PRE SURGICAL TESTING ONLY--* No surgery found *-* Cannot find OR case *-* Surgery not found *- us Maurice Storm MD LAB BLOOD ORDERABL ES Final Result Performing Organization Address City/State/[facility] Co de Phone Number JANNY [address] [facility] Department [place] [address] * ECG 12 lead (06/04/2025 11:48 AM ELECTRONIC TESTER) Ventricular Rate EKG/Min 95 BPM [facility] Atrial Rate 95 BPM [facility] DE-Interval (MSEC) 164 ms [facility] QRS-Interval (MSEC) 80 ms [facility] QT-Interval (MSEC) 352 ms [facility] QTc 442 ms [facility] P [place] 53 degrees [facility] R [place] 22 degrees [facility] T [place] 46 degrees [facility] Diagnosis Normal sinus rhythm Possible Left atrial enlargement Anteroseptal infarct , age undetermined Abnormal ECG No previous ECGs available Confirmed by MD SANTOS FAYE ([id number]) on 06/05/2025 7:29:33 AM [facility] 06/04/2025 11:4 8 AM ELECTRONIC TESTER 06/05/2025 7:29 AM ELECTRONIC TESTER us Maurice Storm MD ECG ORDERABLES Fi nal Result [facility] from Last 3 Months Insurance [employer] [place] [facility] Care Teams Braille Teacher Relationship Specialty Start Date End Date Subhash Lucas DO PCP - General Internal Medicine 08/01/23
== END 2025-06-26 09:39 | disposition home or self-care (01) ==
PROVIDERS: PCP Nurse Practitioner; Visit Provider Nurse Practitioner
DX: K76.0 Fatty (change of) liver, not elsewhere classified (principal); K76.89 Other specified diseases of liver
CPT/HCPCS: 74183; A9577